=== PATIENT | female | born 1945 | race Caucasian/White ===

== ENCOUNTER 2019-06-11 12:53 | Outpatient (CLI) | payer BC, SELFPAY ==
--- NOTE | ~2019-06-11 | XR_ITS ---
EXAMINATION: XR tibia fibula RT 2V INDICATION: Right leg pain TECHNIQUE: Two views of the right tibia and fibula are obtained. COMPARISON: None available FINDINGS: There is a long total rotating hinged knee arthroplasty with a longstem tibial component an d modular femoral component with patellar resurfacing periprosthetic lucency is seen in the medial as pect of the proximal tibia. There is soft tissue swelling of the leg. 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 IMPRESSION: 1. Age-indeterminate periprosthetic lucency in the medial aspect of the proximal tibia. Subacute frac ture is favored however recommend correlation with any prior imaging. Reviewed, dictated and finalized at location B. IMPRESSION: 1. Age-indeterminate periprosthetic lucency in the medial aspect of the proxima l tibia. Subacute fracture is favored however recommend correlation with any pr ior imaging.
--- NOTE | ~2019-06-11 | XR_ITS ---
XR femur RT min 2V 06/11/2019 13:32 Indication: Right leg pain Procedure: 2 views right femur Comparison: 06/11/2019 Findings: There is mild osteoarthritis of the right hip. There is a longstem femoral component to the right knee arthroplasty. There is a cemented femoral component with extruded cemented. No acute frac ture or traumatic malalignment. Prosthesis appears well seated. Impression: 1: No acute bone or joint abnormality. Reviewed, dictated and finalized at location A. Impression: 1: No acute bone or joint abnormality.
--- NOTE | ~2019-06-11 | XR_ITS ---
EXAMINATION: XR knee RT 2V INDICATION: Right knee pain TECHNIQUE: Two views of the right knee are obtained COMPARISON: None available FINDINGS: There are changes of total rotating hinged knee arthroplasty with a longstem tibial compone nt and modular femoral component with patellar resurfacing. There is a moderate amount of soft tissue swelling of the leg. No hardware failure or loosening is evident. Bone alignment is normal. IMPRESSION: 1. No acute osseous abnormality. Reviewed, dictated and finalized at location B.
== END 2019-06-11 12:54 | disposition home or self-care (01) ==
LOC: ANHIMG 13:02
DX: Z47.89 Encounter for other orthopedic aftercare (principal); R93.7 Abnormal findings on diagnostic imaging of other parts of musculoskeletal system
CPT/HCPCS: 73552; 73560; 73590

== ENCOUNTER 2020-05-08 09:00 | Outpatient (RCR) | payer BC, SELFPAY ==
--- NOTE | 2020-02-11 11:54 | PTOPEVAL ---
PHYSICAL THERAPY EBALUATION AND PLAN OF TREATMENT 02-11-2020 Thank you for referring Brittany Garcia to [facility] for the diagnosis of R UE lymphedema.? She is scheduled to be seen for therapy? 3 x/week for 6 weeks. Please review, sign, date and return this plan of care VICK. I agree with and certify that the following plan of care is medically necessary. Referring Physician Date Attending Provider: Dr. 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; Cardiovascular History Hx Hypertension Yes: meds Respiratory History Hx Respiratory Disorders No Significant History Gastrointestinal History Hx Appendectomy Yes Hx Cholecystectomy Yes Hx Other Gastrointestinal Disorders Yes: exploratory lap with c- section Genitourinary History Hx Genitourinary Disorders No Significant History Musculoskeletal History Hx Orthopedic Surgery Yes: R TKR, with infection/ removal and replaced Hematological History Hx Hematological Disorders No Significant History Endocrine History Hx Endocrine Disorders No Significant History Reproductive History Hx Hysterectomy Yes Other History Hx Cancer Yes: R breast cancer Evaluation Information Problem Diagnosis R UE lymphedema Onset Oct 2019 Prior Level of Function Activity Level (Last 3 Months) Occupation not working outside of home/ retired Hand Dominance Right Home Setting Home Type House,Multiple Levels Living Situation With Spouse Mobility Assistive Devices (Used Last 3 None,Cane Months) Comments Additional Prior Level of Function use cane PRN for distances and Comments uneven surfaces- due to R knee Pain Assessment Timing of Pain Assessment Timing of Pain Assessment Assessment Pain Scale Pain Scale Used Numeric (1 - 10) Self Report Pain Assessment Right Arm(s) Reported Pain Level 6 Radicular Pain Location pain, sometimes sharp in elbow Pain Frequency Chronic Lowest Pain Intensity 6 Greatest Pain Intensity 6 Pain Behaviors Grimacing Pain Score Pain Score 6: Self Report Interventions Used
--- NOTE | 2020-02-24 09:57 | PCPTNOTE ---
Patient called & cancelled scheduled appointment this date due to [not felling well.]
--- NOTE | 2020-02-26 10:52 | PCPTNOTE ---
Called pt to check on her . Cx Monday due to illness. pt stated she was very sick, almost passed out last light and , Valente, fever , cough and nauseated. but did not contact . Asked Brittany to please call her pt cx today and Monday's appt. Pt asked if she should keep her arm wrapped from Monday. Instructed Brittany to unwrap her arm for now.
--- NOTE | 2020-02-28 09:39 | PCPTNOTE ---
Called Brittany to check on her, pt stated she has tested positive for covid and would like to cancel her apts. until the week of the .
--- NOTE | 2020-03-05 14:27 | PCPTNOTE ---
Called pt to check on her and she stated she almost went to the hospital Monday , an ambulance came , but the attendance talked her into staying home , pulse ox was 98 no fever, lungs sounds clear. Pt feels she is on the mend but wants to cancel all appointments until the first of the year. Reminded pt to get a new dr order . Brittany thanked us for our concern.
--- NOTE | 2020-03-23 09:08 | PCPTNOTE ---
Patient did not show up for scheduled appointment this date. Called Brittany on her home and cell phone number and left a message to please return our call. I have been calling patient once a week to check on her since she had covid .
--- NOTE | 2020-04-07 11:19 | PTOPEVAL ---
PHYSICAL THERAPY RE-EVALUATION AND UPDATED PLAN OF CARE 04-07-2020 Refer to the clinical summary below for a comparison to the initial evaluation. She has only received 3 PT sessions, then became ill. Thank you for referring Brittany Garcia to [facility].? Brittany is scheduled to be seen for therapy? 3 x/week for 5 weeks. Please review, sign, date and return this plan of care VICK. I agree with and certify that the following plan of care is medically necessary. Referring Physician Date Attending Provider: Dr. Anastasia Stahl 04/07/20 10:00 FRITZ (Rec: 04/07/20 10:27 FRITZ [id number]) Assessment Status Re-evaluation Subjective Information Brittany reports: since last here Query Text:As Reported By Patient/ , contacted COVID- very sick Family and hospitalized for 3 days- had coughing, SOB and swelling over all of her body; continue to wear R arm sleeve; Pain Assessment Timing of Pain Assessment Timing of Pain Assessment Assessment Pain Scale Pain Scale Used Numeric (1 - 10) Self Report Pain Assessment Right Arm(s) Reported Pain Level 0 Pain Frequency Chronic Other Pain Description R elbow hurts -posterior elbow joint; comes and goes, some sharp pains Lowest Pain Intensity 0 Greatest Pain Intensity 7 Pain Score Pain Score 0: Self Report Interventions Used Interventions Used By Clinicians Education Other Alleviating Interventions rub elbow Lymphedema Evaluation Skin Inspection Location Right Upper Extremity Skin Observations Obesity,Shiny, Dry, Pale Skin Tissue Texture Hard Lymphedema Stage II Skin Inspection Comment minimal redness over lower arm ; dry,flaking skin throughout arm; fibrotic tissue over forearm- medial and lateral aspects; proximal to wrist, fibrotic ridge where sleeve ended; minimal edema over hand--she is not wearing her glove today, but has one at home; upper arm without redness or fibrotic tissue UE Circumferential Measurement Right UE Lymphedema Side Right Mid-Proximal Third Finger (cm) 6 Palm (cm) 20 Wrist Crease (cm) 19.5 4 cm From Wrist (cm) 25.5 8 cm From Wrist (cm) 34 12 cm From Wrist (cm) 37 16 cm From Wrist (cm) 37.8 20 cm From Wrist (cm) 35.5 24 cm From Wrist (cm)
--- NOTE | 2020-05-08 16:06 | PCPTNOTE ---
PHYSICAL THERAPY DISCHARGE 05-08-20 Attending Provider: Dr.Julie Stahl Patient:rBittany Garcia Date of :1945 Mrs. Garcia has received 17 PT sessions, for the diagnosis of R UE lymphedema, from February 10 to today. During this time frame, she was ill and did not have treatment for 6 weeks. Brittany improved with: circumferential measurement of her R UE, up 40 from her wrist, is 357.8 cm, decreased by 52.8 cm; no longer has any redness or fibrotic tissue over R forearm and no longer has any pain over her elbow. She has a new compression sleeve, custom made, with 20-30 mmHg. The PT goals were achieved, therefore she will be discharged at this time. She is to continue with her home intermittent compression pump, self manual lymph drainage, UE exercises and compression garment. Thank you for referring Brittany to [facility]. Please review, sign, date and return this discharge summary VICK. I have been updated about the patient's current status and I agree with discharge from the above service at this time. Referring Physician Date
== END 2020-05-11 08:05 | disposition home or self-care (01) ==
LOC: ANHPT 09:00
DX: I89.0 Lymphedema, not elsewhere classified (principal); Z85.3 Personal history of malignant neoplasm of breast
CPT/HCPCS: 29581; 97140; 97161

== ENCOUNTER 2022-11-08 16:38 | Emergency (ER) | payer BC, SELFPAY ==
--- NOTE | ~2022-11-08 | XR_ITS ---
EXAMINATION: XR chest 2V DATE: 11/08/2022 17:21 INDICATION: Dry cough TECHNIQUE: frontal and lateral views of the chest were obtained. COMPARISON: Chest radiograph dated 04/13/2007 FINDINGS: Small right pleural effusion. Scattered airspace opacities throughout the right lung the most dense c onsolidation in the right midlung zone. In addition there are masslike opacities in the right suprahi lar and infrahilar regions which are concerning for malignancy. Mild atelectasis at the lateral left lung base. No pneumothorax or left-sided pleural effusion. Heart size within normal limits for AP janay hnique. Cholecystectomy clips in right upper quadrant. Mild S-shaped curvature of the thoracic and ce mbar spine with mild to moderate spondylosis. IMPRESSION: 1. Masslike opacities in the right suprahilar and infrahilar regions concerning for malignancy. Recom mend further evaluation with postcontrast chest CT. 2. Additional less well-defined airspace opacities throughout the right lung which could represent at electasis or pneumonia potentially postobstructive. 3. Small right pleural effusion, potentially malignant. Reviewed, dictated and finalized at location A. IMPRESSION: 1. Masslike opacities in the right suprahilar and infrahilar regions concerning for malignancy. Recommend further evaluation with postcontrast chest CT. 2. Additional less well-defined airspace opacities throughout the right lung wh ich could represent atelectasis or pneumonia potentially postobstructive. 3. Small right pleural effusion, potentially malignant.
--- NOTE | 2022-11-08 16:49 | ED.GENADULT ---
HPI - General Adult General Chief complaint: Upper Respiratory Infection Stated complaint: cough Source: patient, family and RN notes reviewed History of Present Illness HPI narrative: 77 yo F presents to urgent care with daughter at side. Pt states she has had a non-productive cough x 30 days. Pt states she was placed on prednisone (30 pills total, unknown dose) and albuterol on Oct 18. Pt states she noticed some improvement with the steroids but since she has finished this, her cough has returned. Pt states the cough is worse at nighttime. Pt reports pain in the right side of her chest and right side of upper back, intermittently, and worse also when she lies down. States she has some SOB. Denies any fevers, chills, or other symptoms. 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 Related Data Home Medications Medication Instructions Recorded Confirmed amlodipine 5 mg tablet 5 mg PO DAILY 11/08/22 11/08/22 amoxicillin 875 mg tablet 875 mg PO BID 11/08/22 11/08/22 bisoprolol 10 1 tablet PO DAILY 11/08/22 11/08/22 mg-hydrochlorothiazide 6.25 mg tablet ibuprofen 800 mg tablet 800 mg PO DIRECTED 11/08/22 11/08/22 rosuvastatin 10 mg tablet 10 mg PO DAILY 11/08/22 11/08/22 vibegron 75 mg tablet (Gemtesa) 75 mg PO DAILY 11/08/22 11/08/22 Allergies Allergy/AdvReac Type Severity Reaction Status Date / Time codeine Allergy Unknown Other Verified 11/08/22 16:41 morphine Allergy Unknown Other Verified 11/08/22 16:41 Penicillins Allergy Unknown Other Verified 11/08/22 16:41 Review of Systems Review of Systems: CONSTITUTIONAL: Denies fever, chills, or sweats. EYES: Denies visual changes, redness, or discharge. ENT: Denies otalgia and sore throat CARDIOVASCULAR: Right sided chest pain RESPIRATORY: cough, SOB GASTROINTESTINAL: Denies abdominal pain, nausea, vomiting, or diarrhea. GENITOURINARY: Denies dysuria or hematuria. SKIN: Denies rash or itching. MUSCULOSKELETAL: Right back pain NEUROLOGIC: Denies headache, numbness, or weakness. Pertinent positives per HPI. PMFSH Comments At the time of my signature, I reviewed and agree with the nursing past medical, surgical, social, and family history. There is no relevant family history pertinent to the patient complaint. Exam Narrative: GENERAL: This is a well-nourished, well-developed patient, in no apparent distress. HEAD: normocephalic, atraumatic. EYES: Sclera clear/white. Vision is grossly intact. EARS: External ears normal, auditory canals clear and without drainage. Hearing grossly intact. NOSE: External nose normal with no obvious nasal discharge, nares without redness, no rhinorrhea. THROAT: Mucous membranes moist, posterior pharynx clear. NECK: Neck supple, non-tender without lymphadenopathy, masses or thyromegaly. CARDIOVASCULAR: Regular rate and rhythm without murmurs, gallops, or rubs. RESPIRATORY: Clear to auscultation. Slightly diminished in the RLL. SKIN: warm, intact with no suspicious lesions or rash, good texture and turgor. NEURO: awake, alert, and oriented to person, place and time. There were no obvious focal neurologic abnormalities. EXTREMITIES: Lymphadenopathy of RUE, chronically. BACK: Nontender without deformity or crepitus. No flank tenderness. Course Course Level of Care: Express Care Visit Vital Signs Vital signs: Vital Signs Temperature 99.5 F 11/08/22 16:52 Pulse Rate 81 11/08/22 16:52 Respiratory Rate 16 11/08/22 16:52 Blood Pressure 139/69 11/08/22 16:52 Pulse Oximetry 95 11/08/22 16:52 Oxygen Delivery Room Air 11/08/22 16:52 Temperature 99.5 F 11/08/22 16:52 Pulse Rate 81 11/08/22 16:52 Respiratory Rate 16 11/08/22 16:52 Blood Pressure 139/69 11/08/22 16:52 Pulse Oximetry 95 11/08/22 16:52 Oxygen Delivery Room Air 11/08/22 16:52 Reviewed Medical Decision Making MDM Narrative Medical decision making narrative: Take the z-pack as prescrib
[2022-11-08 16:52] VITALS: BP 139/69; PULSE 81; RESP 16; TEMP 37.5; O2SAT 95
== END 2022-11-08 17:48 | disposition home or self-care (01) ==
PROVIDERS: Emergency Provider Nurse Practitioner Family; PCP Emergency Medicine
DX: J18.9 Pneumonia, unspecified organism (principal); R91.8 Other nonspecific abnormal finding of lung field; I10 Essential (primary) hypertension; Z85.3 Personal history of malignant neoplasm of breast; Z96.651 Presence of right artificial knee joint
CPT/HCPCS: 71046; 99213; G0463